=== PATIENT | female | born 1960 | race Caucasian/White ===

== ENCOUNTER → 2022-10-14 10:21 | Outpatient (BNVA) | payer OTHER, SELFPAY | PROVIDERS: Visit Provider Physician Assistant | DX: M25.561 Pain in right knee (principal) | CPT/HCPCS: 73564; 99204 ==

== ENCOUNTER → 2022-10-21 14:02 | Outpatient (BNVA) | payer OTHER, SELFPAY | PROVIDERS: Visit Provider Physician Assistant | DX: M25.561 Pain in right knee (principal); M23.51 Chronic instability of knee, right knee | CPT/HCPCS: 99214 ==

== ENCOUNTER → 2022-11-05 09:04 | Outpatient (BNVA) | payer OTHER, SELFPAY | PROVIDERS: Visit Provider Physician Assistant | DX: M25.561 Pain in right knee (principal) | CPT/HCPCS: 99213 ==

== ENCOUNTER 2022-11-16 15:16 | Outpatient (REF) | payer OTHER, SELFPAY ==
--- NOTE | ~2022-11-16 | MR_ITS ---
EXAMINATION: MR KNEE WITHOUT CONTRAST, RIGHT CLINICAL INFORMATION: Right knee pain and prior swelling. Difficulty walking and running. COMPARISON: Right knee radiographs dated 10/14/2022. TECHNIQUE: MRI of the knee without contrast was performed using routine sequences on a high-field scanner. FINDINGS: MENISCI: Medial Meniscus: Mild degenerative intrasubstance signal within the posterior horn. No articular surface tearing. Lateral Meniscus: Intact. LIGAMENTS: Cruciate: Intact Collateral: Intact EXTENSOR MECHANISM: Intact quadriceps and patellar tendons. Normal patellofemoral alignment. ARTICULAR CARTILAGE/BONE: Patellofemoral Compartment: Redemonstration of a multipartite patella with corticated ossifications superolaterally. No evidence of acute injury. Patellar median ridge full-thickness articular cartilage fissuring. Lateral facet signal heterogeneity. Central trochlea signal heterogeneity. Tiny marginal osteophytes. Medial Compartment: Minimal articular cartilage signal heterogeneity with tiny marginal osteophytes. Lateral Compartment: Intact articular cartilage. JOINT FLUID AND BURSAE: Trace joint effusion and trace Guthrie's cyst. MUSCLES/TENDONS: Increased T2 signal within the lateral gastrocnemius muscle consistent with acute muscle strain. MR/MR knee RT wo con IMPRESSION: 1. Mild degenerative intrasubstance signal within the medial meniscus posterior horn. No articular surface meniscal tear. 2. 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 Trace joint effusion and trace Guthrie's cyst. Multiple the patella without evidence of acute injury. 3. Acute strain of the lateral gastrocnemius muscle.
== END 2022-11-16 15:17 | disposition home or self-care (01) ==
LOC: HO.MRI 15:16
PROVIDERS: Visit Provider Internal Medicine
DX: M25.561 Pain in right knee (principal)
CPT/HCPCS: 73721

== ENCOUNTER → 2022-11-20 13:12 | Outpatient (BNVA) | payer OTHER, SELFPAY | PROVIDERS: Visit Provider Physician Assistant | DX: S86.111D Strain of other muscle(s) and tendon(s) of posterior muscle group at lower leg level, right leg, subsequent encounter (principal); X58.XXXD Exposure to other specified factors, subsequent encounter | CPT/HCPCS: 99214 ==

== ENCOUNTER → 2022-12-07 11:37 | Outpatient (BNVA) | payer OTHER, SELFPAY | PROVIDERS: Visit Provider Physician Assistant | DX: S86.111D Strain of other muscle(s) and tendon(s) of posterior muscle group at lower leg level, right leg, subsequent encounter (principal); X58.XXXD Exposure to other specified factors, subsequent encounter | CPT/HCPCS: 99213 ==

== ENCOUNTER 2024-11-27 14:44 | Outpatient (REF) | payer OTHER, SELFPAY ==
[2024-11-27 16:43] LABS: MANUAL DIFF FLAG SCAN; PLT CLUMP 1; SCAN SMEAR FLAG 1
[2024-11-27 17:07] LABS: Creatinine Urine 21.08 mg/dL; Microalbumin Urine < 5.0 mg/L
[2024-11-27 17:08] LABS: Basophils Percent Auto 0.3 % (0-2); Eosinophils Percent Auto 0.7 % (0-4); Hematocrit 38.3 % (37.0-47.0); Hemoglobin 12.6 g/dl (12.0-16.0); Imm Gran Abs Auto 0.01 X10*3/uL (0.00-0.03); Imm Gran Pct Auto 0.2 % (0.0-0.4); Lymphocytes Absolute Auto 1.6 X10*3/uL (1.2-4.9); Lymphocytes Percent Auto 26.8 % (20-40); Mean Corpuscular HGB Conc 32.9 g/dl (31.0-35.0); Mean Corpuscular Hemoglobin 29.2 pg (27.0-33.0); Mean Corpuscular Volume 88.9 fL (80.0-98.0); Mean Platelet Volume 11.7 fL (9.4-12.3); Monocytes Absolute Auto 0.3 X10*3/uL (0.1-1.2); Monocytes Percent Auto 5.3 % (2-11); Neutrophils Percent Auto 66.7 % (45-73); Platelet Count 159 X10*3/uL (160-400); Red Blood Count 4.31 X10*6/uL (4.20-5.50); Red Cell Distribution Width 12.5 % (11.0-16.0)
[2024-11-27 17:12] LABS: SLIDE REVIEW VERIFIED
[2024-11-27 17:28] LABS: Vitamin B12 334 pg/mL (200-900)
[2024-11-27 17:29] LABS: Alanine Aminotransferase 21 U/L (0-31); Albumin Level 4.2 g/dL (3.5-5.0); Anion Gap 12 (12-20); Aspartate Amino Transferase 27 U/L (5-31); Bilirubin Total 0.3 mg/dL (0.0-1.0); Blood Urea Nitrogen 17 mg/dL (9-16); Calcium 9.4 mg/dL (8.4-10.2); Carbon Dioxide 26 mmol/L (22-29); Chloride 106 mmol/L (96-108); Cholesterol 202 mg/dL (<200); Estimated Glomerular Filt Rate > 60; Glucose Random 102 mg/dL (60-115); HDL Cholesterol 82 mg/dL (>40); Iron 87 mcg/dL (30-160); Magnesium 2.2 mg/dL (1.6-2.6); Percent Iron Saturation 28 % (15-50); Potassium 3.9 mmol/L (3.3-5.1); Sodium 140 mmol/L (135-145); Total Iron Binding Capacity 313 mcg/dL (228-428); Unsaturated Iron Binding 226 ug/dL
[2024-11-27 17:51] LABS: Alkaline Phosphatase 74 U/L (39-117); Ferritin 119 ng/mL (10-250); Vitamin D 25-OH Total 40.9 ng/mL (>30)
[2024-11-28 05:38] LABS: Mumps Virus IgG Antibody <9.00 AU/mL; Rubeola IgG (Measles) >300.00 AU/mL
[2024-11-28 07:10] LABS: HBS Num1 348.52 mIU/mL (0-7.99); ~Hepatitis B Surface Antibody REACTIVE (Nonreactive)
[2024-11-28 14:08] LABS: LDL Cholesterol Direct 97 mg/dL (<100)
== END 2024-11-27 14:45 | disposition home or self-care (01) ==
LOC: HO.WFDLDS 14:44
PROVIDERS: Visit Provider Internal Medicine
DX: Z00.00 Encounter for general adult medical examination without abnormal findings (principal)
CPT/HCPCS: 36415; 80053; 82043; 82306; 82465; 82570; 82607; 82728; 83540; 83718; 83721; 83735; 84443; 85025; 86706; 86735; 86762; 86765